=== PATIENT | male | born 1995 | race Caucasian/White ===

== ENCOUNTER 2017-09-28 22:01 | Emergency (ER) | payer OTHER ==
--- NOTE | 2017-09-28 22:48 | EDPHY ---
H & P Smoking Status: Never smoked Time Seen by Provider: 09/28/17 22:29 HPI/ROS: CHIEF COMPLAINT: Right ankle pain HISTORY OF PRESENT ILLNESS: 22-year-old male arrives via private vehicle complaining of acute right lateral ankle pain after he was playing hockey, his toe caught in the ice and twisted and felt immediate pain to the lateral malleolus. He is unable to bear weight secondary to pain. Occurred shortly prior to arrival. No bleeding, no laceration, no puncture wound. Intact skin. PHYSICAL EXAM (Prior to examination, patient consented to physical exam, hands were washed and my usual and customary physical exam procedures followed) 1) GENERAL: Well-developed, well-nourished, alert and oriented. Appears to be in no acute distress. 2) HEAD: Normocephalic 3) HEENT: Pupils equal, round, reactive to light bilaterally. 4) LUNGS: Breathing comfortably. 5) MUSCULOSKELETAL: Tender to palpation lateral malleolus with soft tissue swelling noted. proximal tibia and fibula nontender .5th MT nontender negative Stiles test, compartments soft. Calcaneus nontender. Foot nontender. 6) SKIN: Intact. No tenting. No puncture wound. 7) VASCULAR: DP,PT pulses and cap refill present and brisk DIFFERENTIAL DIAGNOSIS: in no particular order including but not limited to fracture, sprain, compartment syndrome Procedure: Crutches indications for crutch use discussed with patient. Patient fitted for crutches by ER staff. Observed ambulating with crutches. I think the patient has the capacity to safely use crutches. Usual and customary crutch walking precautions provided Procedure: Splint A faye boot splint was applied by ER diazo technician. After application of the splint I returned and re-examined the patient. The splint was adequately immobilizing the joint and distal to the splint the patient's circulation and sensation were intact. Patient shows no signs of compartment syndrome. Was given orthopedic precautions. (Lila Cornell) Constitutional: Initial Vital Signs Temperature (C) 37.4 C 09/28/17 22:12 Heart Rate 94 09/28/17 22:12 Respiratory Rate 16 09/28/17 22:12 Blood Pressure 136/76 H 09/28/17 22:12 O2 Sat (%) 94 09/28/17 22:12 O2 Delivery Mode Room Air Allergies/Adverse Reactions: amoxicillin Allergy (Verified 09/28/17 22:11) Home Medications: Medication Instructions Recorded NK [No Known Home Meds] 09/28/17 MDM/Departure - MDM Imaging Results: Images reviewed myself (Lila Cornell) Medications Given: Discontinued Medications Hydrocodone Bitart/Acetaminophen ([place] 5/325mg Prepack#6) 1 btl TAKEHOME EDNOW ONE Stop: 09/28/17 23:11 Last Admin: 09/28/17 23:26 Dose: 1 btl ED Course/Re-evaluation: Re-evaluation with serial exams. Discussed negative imaging studies showing no definitive fracture. Discussed limitations of imaging. Recommend in stressed orthopedic follow-up information. Splinted. Crutches given. He feels comfortable being discharged. Usual and customary orthopedic precautions and instructions provided. Care of patient under supervision of secondary supervising physician Dr Kraus . (Lila Cornell) PHYSICIAN DOCUMENTATION: The patient was evaluated and managed by the Physician Moth Proofer. My co- signature indicates that I have reviewed this chart and I agree with the findings and plan of care as documented. I am the secondary supervising physician. (Ashley Kraus) - Depart Disposition: Home, Routine, Self-Care Clinical Impression: Right ankle sprain Qualifiers: Encounter type: initial encounter Involved ligament of ankle: unspecified ligament Qualified Code(s): S93.401A - Sprain of unspecified ligament of right ankle, initial encounter Condition: Good Instructions: Hydrocodone/Acetaminophen (By mouth), Ankle Sprain (ED) Additional Instructions: Return to the ER immediately if you experience discoloration, have worsening pain, numbness, tingling, or any other symptoms that concern you. If you received x-rays in the emergency department today, be advised, that ligamentous , tendon, muscular, and other non-bony injury cannot be fully ruled out. Try to keep your affected extremity elevated above the level of your chest, and keep cold packs on the affected area, for the next 48 hours. Referrals: Philip Henry MD [Medical Doctor] - 5-7 days, call for appt.
[2017-09-28] MEDS ORDERED: HYDROCOD/APAP 5/325 PREPACK#6 BTL TAKEHOME ONE (23:10)
[2017-09-28 23:32] VITALS: BP 151/71
== END 2017-09-28 23:34 | disposition home or self-care (01) ==
DX: S93.401A Sprain of unspecified ligament of right ankle, initial encounter (principal); X50.9XXA Other and unspecified overexertion or strenuous movements or postures, initial encounter; Y99.8 Other external cause status; Y93.22 Activity, ice hockey
CPT/HCPCS: L4386